=== PATIENT | female | born 1970 | race Two or more races ===

== ENCOUNTER 2022-12-27 00:53 | Emergency (ER) | payer OTHER ==
[~2022-12-27] VITALS: Ht 152.4 cm; Wt 69.4 kg
[2022-12-27] MEDS ORDERED: NORFLEX100MG PO (04:01)
[2022-12-27] MEDS ORDERED: DOLOGESIC 500-1 EACH PO (04:01)
== END 2022-12-27 04:13 ==
LOC: ER 00:53
DX: M62.838 Other muscle spasm (principal); M94.0 Chondrocostal junction syndrome [Tietze]; Z88.6 Allergy status to analgesic agent